=== PATIENT | female | born 1980 | race Caucasian/White ===

== ENCOUNTER 2017-11-19 23:11 | Emergency (ER) | payer OTHER ==
[2017-11-20 11:23] VITALS: BP 106/64; PULSE 84; O2SAT 99
== END 2017-11-20 03:25 | disposition home or self-care (01) ==
LOC: H.EROB2 23:11
DX: O26.93 Pregnancy related conditions, unspecified, third trimester (principal); R10.2 Pelvic and perineal pain; O48.0 Post-term pregnancy; Z3A.40 40 weeks gestation of pregnancy; O47.1 False labor at or after 37 completed weeks of gestation

== ENCOUNTER 2017-11-23 19:18 | Inpatient (IN) | payer OTHER ==
[2017-11-23 20:09] VITALS: BMI 30.8
[2017-11-23 21:59] LABS: BASO % 0.5 % (0.0-2.0); EOS # 0.1 K/uL (0.0-0.7); EOS % 0.7 % (0.0-4.0); LYMPH # 2.1 K/uL (1.0-4.3); LYMPH % 23.8 % (20.0-40.0); MEAN CELL VOLUME 89.7 fl (81.0-99.0); MEAN CORPUSCULAR HEMOGLOBIN 30.1 pg (27.0-31.0); MEAN CORPUSCULAR HGB CONC 33.6 g/dL (33.0-37.0); MEAN PLATELET VOLUME 9.5 fl (7.2-11.7); MONO # 0.9 K/uL (0.0-0.8); NEUT # 5.8 K/uL (1.8-7.0); NRBC % 0.1 % (0.0-0.0); RBC 4.31 Mil/uL (3.80-5.20); RED CELL DISTRIBUTION WIDTH 14.3 % (11.5-14.5); WHITE BLOOD COUNT 8.9 K/uL (4.8-10.8)
[2017-11-23 22:53] VITALS: RESP 20; O2SAT 100
--- NOTE | 2017-11-24 15:47 | OBPN ---
Datetime: 11/24/2017 15:40 IP Progress Impression: Normal progression of labor; Reassuring heart rate IP Informed Consent Obtain: Vaginal Delivery IP Procedures: Artificial ROM; Sterile Vag Exam IP Progress Plan: Continue present management; Augmentation Membranes, Provider: Ruptured Amniotic Fluid Color, Provider: Clear Contraction Comments Provider: Q 2-3 FHR - Baseline A Provider: 145 Gestation - Est Wks by US: 41.1 Presentation-Admit: Breech IP Progress Note Comment: IUP at 41.1 wks being induced for postdates. C/o strong painful contractions. Denies any VB or LOF. TOCO- Q 2-3 FHR - Category 1, Cx- 3/70/-2, AROM done- clear fluid. Cervidil Removed Assessment: IUP at 41wks in labor NST - Reactive Plan: 1. epidural 2. Augmentation if decreased contractions 3. Monitor closely the progress of labor. Vital Signs Provider: Reviewed NICHD Accel Fetus A IP Provider: 15X15 FHR Category Provider Fetus A: Category I NICHD Variability Prov Fetus A: Moderate 6-25bpm Dilatation, Provider: 3 Effacement, Provider: 70 Station, Provider: -2 NICHD Decel Fetus A IP Provider: None
[2017-11-24] MEDS ORDERED: Lactated Ringer's 1,000 ML IV SCH ×2 (16:15→20:30)
[2017-11-24] MEDS ORDERED: Oxytocin 30 units/LR 500ML 30 U/500 ML BAG IV ONE (17:45)
[2017-11-24] MEDS: Lactated Ringer's 1,000 ML IV SCH ×2 (18:00→18:54)
[2017-11-24] MEDS ORDERED: Bupivacaine HCl 0.25% PF (10 ml) Inj ONE ×2 (18:01→20:20)
[2017-11-24] MEDS ORDERED: Fentanyl/Bupivacaine HCl 250 ML EPI ONE (18:03)
[2017-11-24] MEDS ORDERED: Fentanyl/Bupivacaine HCl 125 ML EPI ONE (18:45)
--- NOTE | 2017-11-24 20:14 | OBPN ---
Datetime: 11/24/2017 20:09 IP Progress Impression: Normal progression of labor; Reassuring heart rate IP Procedures: Sterile Vag Exam IP Progress Plan: Continue present management; Augmentation Membranes, Provider: Ruptured Amniotic Fluid Color, Provider: Clear FHR - Baseline A Provider: 145 Gestation - Est Wks by US: 41.0 Presentation-Admit: Vertex IP Progress Note Comment: IUP at 41wks in labor S/P Epidural, pt still c/o pain at 6/10 Plan: Call anesthesia for top up anesthesia Augmentation with pitocin. NICHD Accel Fetus A IP Provider: 15X15 FHR Category Provider Fetus A: Category I NICHD Variability Prov Fetus A: Moderate 6-25bpm Dilatation, Provider: 3-4 Effacement, Provider: 80 Station, Provider: -2 NICHD Decel Fetus A IP Provider: None
[2017-11-25] MEDS ORDERED: Lidocaine 1% Inj (20ml) ONE (00:49)
[2017-11-25] MEDS: Lactated Ringer's 1,000 ML IV SCH (04:55)
[2017-11-25] MEDS ORDERED: Benzocaine/Menthol SPRAY TOP PRN (05:01)
[2017-11-25] MEDS ORDERED: Ammonia 2% Inhalant ONE (08:35)
--- NOTE | 2017-11-25 09:03 | RAD ---
PROCEDURE: Radiographs of the pelvis. HISTORY: Lost Suture Needle after vaginal tear repair COMPARISON: None. FINDINGS: BONES: Pelvic Bones: Unremarkable. Hips: Grossly unremarkable. JOINTS: Sacroiliac Joints: Unremarkable. Pubic Symphysis: Unremarkable. OTHER FINDINGS: No radiopaque foreign bodies are identified. IMPRESSION: No obvious radiopaque foreign bodies. Under
[2017-11-26 06:45] LABS: HEMOGLOBIN 6.6 g/dL (12.0-16.0); MEAN CELL VOLUME 89.5 fl (81.0-99.0); MEAN CORPUSCULAR HEMOGLOBIN 30.9 pg (27.0-31.0); MEAN CORPUSCULAR HGB CONC 34.5 g/dL (33.0-37.0); MEAN PLATELET VOLUME 8.7 fl (7.2-11.7); PLATELET COUNT 188 K/uL (130-400); RBC 2.12 Mil/uL (3.80-5.20); RED CELL DISTRIBUTION WIDTH 14.4 % (11.5-14.5)
[2017-11-26 07:59] LABS: ANISOCYTOSIS SLIGHT; LYMPHOCYTE 15 % (20-50); MONOCYTE 5 % (0-10); NEUTROPHIL 80 % (42-75); PLATELET ESTIMATE NORMAL (NORMAL); TOTAL CELLS COUNTED 100
[2017-11-26] MEDS: Prenatal Multivit/Folic Acid/Iron Tab PO SCH (08:12)
--- NOTE | 2017-11-26 09:33 | OBPPN ---
Datetime: 11/26/2017 09:26 PP Pain Prov: Within normal limits PP Nausea Prov: Denies PP Flatus Prov: Yes PP Breasts Prov: Normal PP Heart Prov: Normal PP Lungs Prov: Normal PP Abdomen/Uterus Prov: Normal PP Lochia Prov: Normal PP Vulva/Perineum Prov: Normal PP CVA Tenderness Prov: Normal PP Extremities Prov: Normal PP Impression Prov: Normal progression PP Plan Prov: Continue present management PP Progress Note Prov: Patient denies CP, no SOB, no N/V, tolerating PO diet, abdominal pain tolerab le with meds, mild lochia, abdominal pain tolerable with meds, A/P PPD #1 1. Continue current orders 2. reg diet 3. Percocet/MOtrin prn pain IP PP Procedures: None Vital Signs Provider PP: Reviewed; Within Normal Limits Datetime: 11/26/2017 06:13 PP BM Prov: No
[2017-11-26 13:03] LABS: MEAN CELL VOLUME 90.5 fl (81.0-99.0); MEAN CORPUSCULAR HEMOGLOBIN 30.1 pg (27.0-31.0); MEAN CORPUSCULAR HGB CONC 33.3 g/dL (33.0-37.0); RBC 2.1 Mil/uL (3.80-5.20); RED CELL DISTRIBUTION WIDTH 14.4 % (11.5-14.5); WHITE BLOOD COUNT 16.9 K/uL (4.8-10.8)
[2017-11-26 13:11] LABS: HEMOGLOBIN 6.3 g/dL (12.0-16.0)
--- NOTE | 2017-11-26 14:20 | OBDS ---
DELIVERY PERSONNEL Delivery Doctor: Rosa Elena Cardoza MD (Annotations: Data stored by [facility] on behalf of user) Advertising Copy Writer: Francy Paulino RN Anesthesiologist: Rico Buenrostro MD MATERNAL INFORMATION Delivery Anesthesia: Epidural Medications in Delivery: Pitocin 30 units; Lidocaine 20% Estimated Blood Loss (ml): 350 Placenta Cultured: No Maternal Complications: None Provider Comments: Uncomplicated spontaneous vaginal delivery of a viable female infant with BW of 7 Ibs 11.6oz and scores of 9 and 9. Baby delivered in cephalic presentation over a second degree laceration which was repaired with 2-0 chromic with Good cosmesis. EBl- 400 - 500mls LABOR SUMMARY EDC: 11/16/2017 00:00 No. Babies in Womb: 1 Attempted: No Labor Anesthesia: Epidural LABOR INFORMATION Reason for Induction: Postterm Complete Dilatation: 11/25/2017 03:00 Cervical Ripening Agents: Cervidil Oxytocin: Augmentation Group B Beta Strep: Negative Antibiotics # of Doses: N/A Antibiotics Time of Last Dose: N/A Steroids Given: None Reason Steroids Not Administered: Not Applicable MEMBRANES Membranes Rupture Method: Spontaneous Rupture of Membranes: 11/24/2017 10:00 Length of Rupture (hrs): 17.70 Amniotic Fluid Color: Bloody Amniotic Fluid Amount: Small Amniotic Fluid Odor: Normal STAGES OF LABOR Stage 2 hrs: 0 Stage 2 min: 42 Stage 3 hrs: 0 Stage 3 min: 8 VAGINAL DELIVERY Episiotomy: None Laceration Extension: Second Degree Laceration Type: Perineal Laceration Repair: Yes Laceration Repair Note: Second degree laceration repaired with 2-0 chromic after infiltration with 1 % lidocaine and epidural anesthesia. 2 sutures were used. One suture needle was not seen after the vaginal repair. A pelvic Xray reques damion did not show any needle lodged in the pelvis Initial Vag Sponge Count: 5 Final Vag Sponge Count: 5 Initial Vag Sharps Count: 3 Final Vag Sharps Count: 2 Sponge Count Correct: Yes Sharps Count Correct: No Count Comment: 1 vaginal packing. 15 instruments. aware of incorrect sharp count. ordered por table x-ray at bedside. Portable Xray reports negative findings. No suture needle was seen in the pelvic tissues. BABY A INFORMATION Infant Delivery Date/Time: 11/25/2017 03:42 Method of Delivery: Vaginal Born in Route : No : N/A Forceps: N/A Vacuum Extraction: N/A Shoulder Dystocia : No SHOULDER DYSTOCIA BABY A Delivery Date/Time: 11/25/2017 03:42 PRESENTATION/POSITION BABY A Presentation: Cephalic Cephalic Presentation: Vertex Breech Presentation: N/A PLACENTA INFORMATION BABY A Placenta Delivery Time : 11/25/2017 03:50 Placenta Method of Delivery: Spontaneous Placenta Status: Delivered SCORES BABY A Heart Rate 1 min: >100 bpm Resp Effort 1 min: Good Cry Reflex Irritability 1 min: Cough or Sneeze or Pulls Away Muscle Tone 1 min: Active Motion Color 1 min: Body [place], Extremities Blue Resuscitation Effort 1 min: N/A SCORE 1 MIN: 9 Heart Rate 5 min: >100 bpm Resp Effort 5 min: Good Cry Reflex Irritability 5 min: Cough or Sneeze or Pulls Away Muscle Tone 5 min: Active Motion Color 5 min: Body [place], Extremities Blue Resuscitation Effort 5 min: N/A SCORE 5 MIN: 9 INFORMATION BABY A Gestational Age at Delivery: 41.2 Gestational Status: Term Outcome : Liveborn Infant Condition : Stable Sex: Female IDENTIFICATION/MEDS BABY A ID Band Number: [id number] ID Band Location: Left Leg; Left Arm WEIGHT/LENGTH BABY A Infant Birthweight (gms): 3505 Infant Weight (lb): 7 Weight (oz): 12 CORD INFORMATION BABY A No. Cord Vessels: 3 Nuchal Cord : N/A Nuchal Cord Other: N/A True Knot: N/a Cord pH Baby Arterial: N/A Infant Cord pH Baby Venous: N/A Cord Blood Taken: Yes Banking/Donate Info: N/A Suction: Mouth; Nose
[2017-11-26] MEDS ORDERED: Sodium Chloride 0.9% 1,000 ML IV SCH (15:00)
[2017-11-27] MEDS ORDERED: Lansinoh for Breast Feeding Mothers TP ONE (05:50)
[2017-11-27 07:04] LABS: HEMOGLOBIN 8.4 g/dL (12.0-16.0); MEAN CORPUSCULAR HEMOGLOBIN 29.9 pg (27.0-31.0); MEAN CORPUSCULAR HGB CONC 33.6 g/dL (33.0-37.0); RBC 2.81 Mil/uL (3.80-5.20); RED CELL DISTRIBUTION WIDTH 15.3 % (11.5-14.5); WHITE BLOOD COUNT 14.8 K/uL (4.8-10.8)
[2017-11-27] MEDS: Prenatal Multivit/Folic Acid/Iron Tab PO SCH (08:28)
--- NOTE | 2017-11-27 10:32 | OBDCSUM ---
Datetime: 11/27/2017 06:23 Discharged to, Provider: Home Follow up at, Provider: [facility] Disch Instr Activity: Normal activity; May be up to bathroom; May be up for meals; May Shower Disch Instr Diet: Regular Discharge Instructions, Provider: Routine instructions given Discharge Diagnosis, Provider: Term Delivered Discharge Time: 11/27/2017 06:23 Follow up in weeks, Provider: 6 weeks Disch Referrals: None Disch Activity Restrictions: No lifting; Minimize stair-climbing; No sexual activity; Nothing in vag jess - [place], tampons, douche Discharge Comment, Provider: --F/u with PCP in 6 weeks for post- examination. --Rx for Ibuprofen for pain, Colace for bowel movement enhancement and Feosol for anemia. -- and ambulation encouraged. --Pt instructed to go to ER if fever, fatigue, dizziness, intolerable pain, nausea or profuse vagi nal bleeding. [facility] - pt seen [facility] this morning. Agree with PGY1 note KAYLA
--- NOTE | 2017-11-27 10:32 | OBPPN ---
Datetime: 11/27/2017 06:19 PP Pain Prov: Within normal limits PP Nausea Prov: Denies PP Flatus Prov: Yes PP BM Prov: No PP Heart Prov: Normal PP Lungs Prov: Normal PP Abdomen/Uterus Prov: Normal PP Lochia Prov: Normal PP CVA Tenderness Prov: Normal PP Extremities Prov: Normal PP C/S Incision Prov: Not Applicable PP Impression Prov: Normal progression PP Plan Prov: Discharge PP Progress Note Prov: 37 y/o F now , s/p NVD on 11/25/17 complicated by 2nd degree perineal laceration. yesterday, pt was found to be anemic, pt transfused 2 units of pRBC's. Pt reports some b lurry vision and dizziness yesterday but improving since last night. Pelvic pain is well controlled w ith medication. Pt afebrile, tolerating PO, has good appetite. Pt able to ambulate. Pt voiding with n o issues, passing gases but NO bowel movement yet. Pt with NO difficulties. Lochia less than menses. Pt denies headache, dizziness, CP, SOB, N/V or calf tenderness All systems reviewed and negative except as above. O: H/H 13/38.6 on 11/25/17; 6.3/19 yesterday 11/26/17. PE: -Gen: A_O, resting comfortably on bed, NAD. -Lungs: CTAB, No W/R/R. -CV: RRR, S1 and S2 present. -ABD: soft, BS +, firm fundus below umbilicus. -EXT: No cyanosis, non-tender calves. A/P: 37 y/o F on PPD 2, stable, s/p 2 pRBC's transfusion, recovering well from NVD. --F/u today's H/H --Will discharge home today. --F/u with PCP in 6 weeks for post- examination. --Rx for Ibuprofen for pain, Colace for bowel movement enhancement and Feosol for anemia. -- and ambulation encouraged. --Pt instructed to go to ER if fever, intolerable pain, nausea or profuse vaginal bleeding. Case discussed with OB general surgeon [facility] Agree with PGY1 note KAYLA SERRANO PP Procedures: None Vital Signs Provider PP: Reviewed
[2017-11-27 18:19] VITALS: BP 126/72; PULSE 94; TEMP 98
== END 2017-11-27 13:00 | disposition home or self-care (01) | DRG 373 ==
LOC: H.EROB2 19:18 → H.L&D 21:34 → H.OB/GYN 11-25 09:30
PROVIDERS: ADMIT Obstetrics & Gynecology; ATTEND Obstetrics & Gynecology
PROC: 4A1HXCZ Monitoring of Products of Conception, Cardiac Rate, External Approach (ICD-10-PCS; 2017-11-23)
PROC: 10E0XZZ Delivery of Products of Conception, External Approach (ICD-10-PCS; principal; 2017-11-25)
PROC: 0KQM0ZZ Repair Perineum Muscle, Open Approach (ICD-10-PCS; 2017-11-25)
PROC: 30233N1 Transfusion of Nonautologous Red Blood Cells into Peripheral Vein, Percutaneous Approach (ICD-10-PCS; 2017-11-26)
DX: O48.0 Post-term pregnancy (principal); O90.81 Anemia of the puerperium; D64.9 Anemia, unspecified; O70.1 Second degree perineal laceration during delivery; Z3A.41 41 weeks gestation of pregnancy; Z37.0 Single live birth